=== PATIENT | male | born 1985 | race Caucasian/White ===

== ENCOUNTER 2016-12-11 16:55 | Emergency (ER) | payer OTHER ==
--- NOTE | ~2016-12-11 | ER ---
PATIENT'S NAME: ROSA LEE [facility] AGE: 31 Y [address] ROOM: [place] [address] LOCATION: [facility] ADMIT DATE: 12/11/2016 ER/Outpatient Report DISCHARGE DATE: 12/11/2016 FAMILY PHYSICIAN: PHYSICIAN, NO ATTENDING PHYSICIAN: David Pepe TIME: 17:20. CHIEF COMPLAINT: Left lower quadrant pain. HISTORY OF PRESENT ILLNESS: The patient is a 31-year-old male, who presents with left lower quadrant pain, which started this morning. The patient has had some nausea and vomiting with it. The patient does have a history of previous kidney stone. ALLERGIES: SULFA. CURRENT MEDICATIONS: Include plexus . PAST MEDICAL HISTORY: Kidney stone, which required a procedure to remove it with a stent. PAST SURGICAL HISTORY: Include also tonsillectomy. SOCIAL HISTORY: Alcohol occasionally. REVIEW OF SYSTEMS: GENERAL: Health good. No recent fevers or chills. HEENT: No recent sore throat. RESPIRATORY: Negative. CARDIOVASCULAR: Negative. GASTROINTESTINAL: Includes left lower quadrant pain does not radiate into his groin or scrotum. GENITOURINARY: Denies any burning or frequency. OBJECTIVE: VITAL SIGNS: He had a blood pressure of 149/87, his temperature is 97.4, his respiratory rate 16, pulse 60, his O2 sats 99%. GENERAL APPEARANCE: White male appeared grimacing and with complaint of pain. PATIENT'S NAME: ROSA LEE [facility] AGE: 31 Y [address] ROOM: [place] [address] LOCATION: [facility] ADMIT DATE: 12/11/2016 ER/Outpatient Report DISCHARGE DATE: 12/11/2016 FAMILY PHYSICIAN: PHYSICIAN, NO ATTENDING PHYSICIAN: David Pepe HEENT: His sclerae were clear. His buccal membranes moist. Teeth good repair. LUNGS: Sound clear at the base. HEART: Rhythm regular. ABDOMEN: Slightly tender in the left lower quadrant. No flank tenderness. Active bowel sounds. LABORATORY DATA: His urine did show the presence of hematuria or red cells. His CMS was unremarkable. CBC: White count 10.1, hemoglobin 15.4. His ANC 7.6. CT abdomen and pelvis stone protocol did show a 5 x 3 stone in the proximal left ureter with some moderate hydronephrosis. ASSESSMENT: Left proximal ureteral stone measuring 5 x 3. PLAN: I did talk to Dr. Guevara. His recommendation having come to his office Monday then n.p.o. The patient while here in the emergency room, saline lock was placed. He was given 30 of Toradol IV and Zofran 4 mg IV. as well as morphine 4 mg. The patient's pain went from approximately 10 to 3 or 4. The patient felt much more comfortable. The patient was discharged home with a script for [place] 5/325 take two every 4 to 6 hours. The patient refused the Flomax. The patient will also follow up with Dr. Guevara Monday n.p.o. Otherwise, he can return to the emergency room if his pain becomes too severe. The patient also did strain his urine. DARWIN JOHNSON FOR MD ZOILA TALBERT/hermilo /[id number] d: 12/12/16 0013 t: 12/21/16 1058, OUTPATIENT REPORT
[2016-12-11 17:50] LABS: BASOPHIL % 0.4 %; EOSINOPHIL # 0.1 K/uL (0.0-0.5); EOSINOPHIL % 0.9 %; HEMATOCRIT 44.1 % (37.0-53.0); HEMOGLOBIN 15.4 g/dL (12.0-17.0); IMMATURE GRANULOCYTE % 0.4 %; LYMPHOCYTE # 1.7 K/uL (0.8-4.0); LYMPHOCYTE % 16.4 %; MCH 31.4 pg (27.0-34.0); MCHC 34.9 gm/dL (32.0-36.5); MCV 89.8 fl (83.0-98.0); MONOCYTE # 0.7 K/uL (0.0-1.0); MONOCYTE % 6.7 %; MPV 9.8 fl (9.4-12.4); NEUTROPHIL # (ANC) 7.6 K/uL (1.4-9.0); NEUTROPHIL % 75.2 %; NRBC % 0 /100WBC (0-0.00); PLATELET COUNT 235 K/uL (150-450); RBC 4.91 M/uL (4.00-6.00); RDW-CV 12.2 % (11.9-14.6); WBC 10.1 K/uL (4.0-11.0)
[2016-12-11 17:56] LABS: BLOOD URINE 250 /UL (NEGATIVE); COLOR URINE YELLOW (YELLOW); GLUCOSE URINE NEGATIVE (NEGATIVE); KETONE URINE NEGATIVE (NEGATIVE); LEUKOCYTES URINE NEGATIVE /UL (NEGATIVE); NITRITE URINE NEGATIVE (NEGATIVE); PROTEIN URINE 30 mg/dL (NEGATIVE); SPEC GRAVITY URINE 1.025 (1.003-1.035); TURBIDITY URINE CLEAR (CLEAR); UROBILINOGEN URINE NORMAL (NORMAL)
[2016-12-11 18:08] LABS: ALBUMIN 4.1 gm/dL (3.5-5.0); ALK PHOS 79 IU/L (33-138); ALT 44 IU/L (12-78); ANION GAP 10.9 (10.0-19.0); AST 25 IU/L (10-40); BLOOD UREA NITROGEN 10 mg/dL (6-24); CALCIUM 9.1 mg/dL (8.5-10.5); CHLORIDE 105 mMol/L (96-110); CO2 27 mMol/L (22-32); CREATININE 0.8 mg/dL (0.6-1.3); POTASSIUM 3.9 mMol/L (3.7-5.1); SODIUM 139 mMol/L (135-145); TOTAL BILIRUBIN 0.5 mg/dL (0.0-1.5); TOTAL PROTEIN 7.8 g/dL (6.0-8.4)
[2016-12-11 18:08] LABS: RBC URINE 20-50 #/HPF (NEGATIVE); WBC URINE 0-2 #/HPF (NEGATIVE)
[2016-12-11 18:09] LABS: BACTERIA URINE RARE (NEGATIVE); MUCUS URINE 2+ (NEGATIVE)
[2016-12-13] MEDS ORDERED: NORCO 5-325 TA1 EACH PO (13:29)
== END 2016-12-11 19:29 | disposition disaster alternative care site (69) ==
LOC: GMED 16:55
PROVIDERS: Physician Assistant Medical
DX: N13.2 Hydronephrosis with renal and ureteral calculous obstruction (principal); Z88.2 Allergy status to sulfonamides; Z90.89 Acquired absence of other organs
CPT/HCPCS: J1885; J2270; J2405

== ENCOUNTER → 2016-12-13 | Day surgery (SDC) | payer OTHER ==
[~2016-12-13] VITALS: Ht 170.2 cm; Wt 100.2 kg
[~2016-12-13] MED LIST: NORCO 5-325 TA1 EACH PO
--- NOTE | ~2016-12-13 | OR ---
PATIENT'S NAME: ROSA LEE [facility] AGE: 31 Y [address] ROOM: [place] [address] LOCATION: [facility] [place] ADMIT DATE: 12/13/2016 OR/Procedure Report DISCHARGE DATE: FAMILY PHYSICIAN: PHYSICIAN, NO ATTENDING PHYSICIAN: Yordan Guevara SURGEON: Yordan Guevara MD [employer] SUPERVISOR: DATE OF PROCEDURE: 12/13/2016 PREOPERATIVE DIAGNOSIS: Left nephrolithiasis. POSTOPERATIVE DIAGNOSIS: Left nephrolithiasis. PROCEDURES PERFORMED: Cystoscopy, left stent placement, and left ESWL. ANESTHESIA: MAC. COMPLICATIONS: None. INDICATION FOR PROCEDURE: The patient is a 31-year-old male, seen in the emergency room this past weekend with a 5 mm proximal left ureteral stone with pain and obstruction. He was also noted to have a smaller 3 to 4 mm left lower pole stone, which is nonobstructing. DETAILS OF PROCEDURE: After informed consent obtained, the patient was taken to the operating room. A MAC anesthetic was applied. He was placed in the dorsal lithotomy position. The groin area was prepped and draped in normal sterile fashion. Cystoscope was introduced into the urethra and bladder without difficulty. The left ureteral orifice was identified and cannulated with a guidewire up into the renal pelvis. Next, a 6-[place] multi-length ureteral stent was passed over the guidewire up into the renal pelvis. Radiographic imaging shows good positioning of the stent. The patient was then transferred to the lithotripsy table and placed in the supine position. His 5 mm stone was now in the renal pelvis and was treated with shocks starting at 16 kilovolts and gradually increased to 24 kilovolts. The 4 x 4 mm stone was treated with 1500 shocks with good fragmentation. Next, a smaller 3 x 3 mm left lower pole stone was targeted and treated with 500 shocks at 24 kilovolts. This stone also fragmented well with treatment. The patient tolerated his procedure well and was transferred to recovery in good condition. PATIENT'S NAME: ROSA LEE [facility] AGE: 31 Y [address] ROOM: [place] [id number] LOCATION: [facility] [place] ADMIT DATE: 12/13/2016 OR/Procedure Report DISCHARGE DATE: FAMILY PHYSICIAN: PHYSICIAN, MELLISA ATTENDING PHYSICIAN: Yordan Guevara MD LEW/hermilo /[id number] d: 12/13/16 2225 t: 12/20/16 1646, OPERATIVE SUMMARY
== END | disposition disaster alternative care site (69) ==
LOC: GSDC 13:00 → GPOC 13:00 → GSDC 13:03
PROC: 0T778DZ Dilation of Left Ureter with Intraluminal Device, Via Natural or Artificial Opening Endoscopic (ICD-10-PCS; principal; 2016-12-13)
PROC: 0TF4XZZ Fragmentation in Left Kidney Pelvis, External Approach (ICD-10-PCS; 2016-12-13)
DX: N13.2 Hydronephrosis with renal and ureteral calculous obstruction (principal); Z88.2 Allergy status to sulfonamides; Z98.890 Other specified postprocedural states
CPT/HCPCS: C1769; J1100; J1956; J2001; J2405; J7120